=== PATIENT | female | born 1970 | race Caucasian/White ===

== ENCOUNTER 2018-09-28 08:53 | Outpatient (CLI) | payer BC, SELFPAY ==
[2018-09-28 13:10] LABS: Abs Immature Grans 0.02 k/cumm (0.0-0.09); Absolute Basophil Count 0.08 k/cumm (0.0-0.2); Absolute Eosinophil Count 0.16 k/cumm (0.0-0.7); Absolute Lymphocyte Count 2.31 k/cumm (1.2-3.4); Absolute Monocyte Count 0.48 k/cumm (0.11-0.7); Absolute Neutrophil Count 4.61 k/cumm (1.2-6.7); Eosinophils % 2.1; HCT 44.9 % (36.0-46.0); HGB 15.1 g/dL (12.0-15.5); Immature Grans % 0.3; Lymphocytes % 30.2; Mean Corp. HGB Concentration 33.6 g/dL (32.0-36.0); Mean Corpuscular Hemoglobin 29.7 pg (27.0-33.0); Mean Corpuscular Volume 88.2 fL (80-95); Monocytes % 6.3; Neutrophils % 60.1; Platelet Count 359 x1000/uL (130-400); RBC 5.09 m/cumm (4.00-5.20); RBC Distribution Width 13.8 % (11.7-14.6); White Blood Cell Count 7.66 k/cumm (4.4-10.8)
[2018-09-28 14:33] LABS: ALT 28 U/L (12-78); AST 20 U/L (15-37); Albumin 3.9 g/dL (3.4-5.0); Alkaline Phosphatase 121 U/L (46-116); Anion Gap 7.9 mmol/L (3-11); BUN 23 mg/dL (7-18); Bilirubin, Total 0.4 mg/dL (0.2-1.0); CO2 29.1 mmol/L (21.0-32.0); CREATININE 0.94 mg/dL (0.55-1.02); Calcium 8.5 mg/dL (8.5-10.1); Chloride 103 mmol/L (98-107); Glucose 94 mg/dL (70-100); Potassium 4.4 mmol/L (3.5-5.1); Sodium 140 mmol/L (136-145)
[2018-09-28 14:57] LABS: Vitamin D 25 Total 26.4 ng/ml (30-100)
[2018-09-28 15:32] LABS: Bilirubin Negative (Negative); Blood Trace-intact (Negative); Clarity Clear; Glucose Negative (Negative); Ketones Negative (Negative); Leukocyte Esterase Trace (Negative); Nitrite Negative (Negative); Specific Gravity <= 1.005 (1.005-1.025); Urobilinogen 0.2 EU/dL (Up TO 0.2)
[2018-09-28 15:41] LABS: Bacteria Few HPF (Negative); C & S Indicated? Yes; Casts Negative LPF (Negative); Crystals Negative HPF (Negative); Epithelial Cells Negative HPF (Negative); Mucus Negative (Negative); Other Cells Negative (Negative); RBC 0-2 (0-2)
== END 2018-09-28 09:13 ==
PROVIDERS: PCP Family Medicine; Visit Provider Internal Medicine Rheumatology
DX: M32.9 Systemic lupus erythematosus, unspecified (principal); E55.9 Vitamin D deficiency, unspecified
CPT/HCPCS: 36415; 80053; 82306; 87077; 81003; 81015; 85025; 87086; 87186

== ENCOUNTER 2018-12-07 16:00 | Outpatient (REF) | payer BC, SELFPAY | END 2018-12-07 16:20 | LOC: LBN 16:00 | PROVIDERS: PCP Family Medicine; Visit Provider Family Medicine | DX: N76.0 Acute vaginitis (principal) | CPT/HCPCS: 87480; 87510; 87660 ==

== ENCOUNTER 2019-03-15 09:33 | Emergency (ER) | payer BC, SELFPAY ==
[2019-03-15 09:37] VITALS: BP 128/83; PULSE 63; RESP 18; TEMP 36.6; O2SAT 100
--- NOTE | 2019-03-15 09:38 | W.ED.GENAD ---
Discharge Plan Disposition Patient Disposition: HOME Discharge Details Chief Complaint: RashLesion Clinical Impression: Contact dermatitis Primary Care Provider: Terra Sanabria ED Provider: Marty Kincaid Home Meds and New Rx's Prescriptions: No Action methylphenidate HCl 20 mg tablet 20 mg PO TID MDD 3 Qty: 90 RF: 0 ergocalciferol (vitamin D2) [Vitamin D2] 50,000 unit capsule 50,000 unit PO QWEEK Qty: 12 RF: 3 pregabalin [Lyrica] 100 mg capsule See Rx Instructions PO BID Qty: 270 RF: 3 duloxetine 60 mg capsule,delayed release(DR/EC) 60 mg PO DAILY Qty: 270 RF: 3 duloxetine 30 mg capsule,delayed release(DR/EC) 30 mg PO DAILY Qty: 270 RF: 3 bupropion HCl [Wellbutrin XL] 150 mg tablet extended release 24 hr 150 mg PO DAILY Qty: 270 RF: 3 hydroxychloroquine [Plaquenil] 200 MG tablet 200 mg PO BID RF: 0 ibuprofen 200 MG tablet 2 - 4 tab PO BID PRNRF: 0 cevimeline 30 MG capsule 30 mg PO TID PRNRF: 0 Discharge Instructions Instructions: Dermatitis (ED) Additional Instructions: Rash is nondescript and most likely a form of contact dermatitis. Avoid excess itching which may cause secondary infection. Apply thin layer of hydrocortisone cream over the areas of most discomfort. Return should she develop lesions in your mouth severe pain or swelling. Follow-up with the provider should your symptoms persist. Referrals: Terra Sanabria MD, [place] [Primary Care Provider] - 1 week Discharge Data Discharge Date/Time-TO BE ENTERED AT DEPARTURE: 03/15/19 10:06 Medical Decision Making This is a nontoxic-appearing 48-year-old female who presents to the emergency department with a nondescript, nonblanching, maculopapular rash involving the lower back. There is crossing of the midline. Negative Nikolsky sign. No palmar lesions. No oral lesions. Vitals are stable here. No new medications or detergents at home. Symptoms are most likely that of a contact dermatitis nondescript. Discussed supportive care. Discussed use of [id number]-[id number] hydrocortisone cream for itching. Return precautions provided. She is stable for discharge at this time. HPI General Date/Time Provider Initiated Documentation: 03/15/19 09:38. HPI Narrative: This is a 48-year-old female with a significant past medical history for lupus who presented to the emergency department with a burning/itching rash of her lower back. Patient states that symptoms started 24 hours ago after doing excessive yard work. She denies any skin exposure to plants at that time. No other rashes or lesions noted. She denies any oral lesions. No palmar rashes. No fevers. No neck pain or stiffness. No headache. She denies any new medications. No new detergents or clothing. No other family members with rashes. Related Data Home Medications Medication Instructions Recorded Confirmed hydroxychloroquine [Plaquenil] 200 mg PO BID tab-cap 08/24/12 03/15/19 ibuprofen 2 - 4 tab PO BID PRN 08/23/13 03/15/19 cevimeline 30 mg PO TID PRN tab-cap 06/25/16 03/15/19 ergocalciferol (vitamin D2) 50,000 50,000 unit PO QWEEK #12 tab-cap 08/04/18 03/15/19 unit capsule bupropion HCl 150 mg 24 hr tablet, 150 mg PO DAILY #270 tab-cap 11/09/18 03/15/19 extended release duloxetine 30 mg capsule,delayed 30 mg PO DAILY #270 tab 11/09/18 03/15/19 release duloxetine 60 mg capsule,delayed 60 mg PO DAILY #270 tab-cap 11/09/18 03/15/19 release pregabalin 100 mg capsule See Rx Instructions PO BID #270 11/09/18 03/15/19 tab-cap methylphenidate HCl 20 mg tablet 20 mg PO TID #90 tab-cap MDD 3 12/07/18 03/15/19 Previous Rx's Medication Instructions Recorded ergocalciferol (vitamin D2) 50,000 50,000 unit PO QWEEK #12 tab-cap 08/04/18 unit capsule bupropion HCl 150 mg 24 hr tablet, 150 mg PO DAILY #270 tab-cap 11/09/18 extended release duloxetine 30 mg capsule,delayed 30 mg PO DAILY #270 tab 11/09/18 release duloxetine 60 mg capsule,delayed 60 mg PO DAILY #270 tab-cap 11/09/18 release pregabalin 100 mg capsule See Rx Instructions PO BID #270 11/09/18 tab-cap methylphenidate HCl 20 mg tablet 20 mg PO TID #90 tab-cap MDD 3 12/07/18 Allergies Allergy/AdvReac Type Severity Reaction Status Date / Time No Known Drug Allergies Allergy Unverified 12/07/18 14:14 Review of Systems Constitutional Constitutional: Denies anorexia, Denies chills, Denies fatigue, Denies fever(s), Denies headache(s) and Denies lethargy Eyes Eyes: Denies dry eyes, Denies irritation and Denies itchy eyes ENT Ears, Nose, Mouth, and Throat: Denies headache(s), Denies mouth lesions, Denies mouth pain, Denies neck mass and Denies neck pain Cardiovascular Cardiovascular: Denies chest pain, Denies edema and Denies dyspnea Respiratory Respiratory: Denies cough, Denies dyspnea and Denies wheezing Gastrointestinal Gastrointestinal: Denies diarrhea, Denies nausea and Denies vomiting Genitourinary Genitourinary: Denies dysuria Musculoskeletal Musculoskeletal: Denies myalgias, Denies arthralgias, Denies joint swelling, Denies neck pain and Denies numbness Integumentary/Breasts Skin/Breast: Denies bleeding lesions, Denies erythema, Reports rash, Denies skin pain, Denies skin swelling, Denies skin ulcer, Denies sores, Denies striae, Denies unusual bruising and Denies jaundice Neurologic Neurologic: Denies headache(s) and Denies numbness Endocrine Endocrine: Denies fatigue Hematologic/Lymphatic Hematologic/Lymphatic: Denies easy bruising and Denies lymphadenopathy Allergic/Immunologic Allergic/Immunologic: Denies itchy eyes and Denies wheezing [facility] Medical History Annual physical exam (Resolved 05/13/17) Bronchitis (Resolved) Noemí infection of mouth (Resolved 03/20/14) Cervical spondylosis (Resolved 07/10/12) Cognitive disorder (Chronic 09/05/15) Complaints of memory disturbance (Chronic 07/05/14) Contraceptive surveillance (Resolved) 03/18/11 Depressive disorder (Chronic) Fatigue (Resolved 12/24/11) ON METHYLPHENIDATE Fever (Resolved 04/07/17) Limitation due to disability (Chronic 12/06/14) Low back pain (Chronic 10/03/16) Lupus erythematosus (Chronic 08/24/12) thrombosis prophylaxis surgery ([facility] rheumatology) Multiple sclerosis (Chronic 08/24/12) Rib pain on left side (Resolved) 06/25/16 Shoulder pain, right (Resolved 04/18/15) Stenosing tenosynovitis (Resolved 08/14/15) LEFT Vitamin D deficiency (Chronic 12/24/11) Wrist pain, left (Resolved 04/18/15) Social History (Updated 12/09/18 @ 11:33 by Kaz Ramon) Smoking/Tobacco Use Status: Former Tobacco Use Quit Date: 12/31/13 Second Hand Exposure: Yes Alcohol Intake: never Drug use: Occasionally Substance use type: marijuana Caregiver/Support person: No Household members: significant other, children and other Details: 3 Housing: house Communication Needs: Corrective Lenses Do you need help understanding health information?: Never 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 Pets and animals: Yes Pets and animals: cat(s) Sexually active: Yes Do you think of yourself as: straight/heterosexual Current gender identity: female What is your relationship status?: living with partner How often do you talk on the phone with friends or family?: three or more times per week How often do you get together with friends or relatives?: three or more times per week How often do you attend moravian or anglican services?: 1-3 times per year Do you belong to any clubs or organized social groups?: no Panel score (0-1 are the most socially isolated patients): 2 What type of physical activity do you participate in: walking Frequency: 3-4 times per week Germaine/Yarsani: Sabianist Special germaine needs: No Seatbelt use: always Drive intox or ride w/intox vending route driver: No Do you feel safe at home: Yes Do you feel safe in your relationship?: Yes Exam Const General: cooperative, healthy appearing, comfortable and no acute distress Orientation: alert, awake and oriented x3 HENMT Head: normal to inspection General nose exam: external nose normal Face and sinus: normal facial exam Mouth: oral mucosae normal Teeth and gingiva: dentition normal Throat: posterior oropharynx normal Eyes General: appearance normal, both eyes and all related structures Periorbital: periorbital findings normal Conjunctivae: conjunctivae normal Sclera: sclerae normal Pupils: PERRL EOM: EOM intact bilaterally Neck Neck: normal visual inspection and full ROM Chest Chest: normal inspection of the chest Cardio Pulses: normal peripheral pulses GI Inspection: normal to inspection Back/Spine/Pelvis Cervical Spine: normal cervical lordosis Thoracic/Lumbar Spine: thoracic and lumbar spine normal to inspection Skin Rashes: rashes noted (Maculopapular rash which crosses midline of the lower back. Blanching note) Other: Rash is blanching. Diffuse. Negative Nikolsky sign.
== END 2019-03-15 10:06 | disposition home or self-care (01) ==
LOC: ER 10:08
PROVIDERS: Emergency Provider Physician Assistant; PCP Family Medicine
DX: L25.9 Unspecified contact dermatitis, unspecified cause (principal)
CPT/HCPCS: 99282

== ENCOUNTER 2019-08-17 08:52 | Outpatient (CLI) | payer BC, SELFPAY ==
[2019-08-19 04:31] LABS: Vitamin D 25 Total 27.9 ng/ml (30-100)
== END 2019-08-17 09:12 ==
PROVIDERS: PCP Family Medicine; Visit Provider Family Medicine
DX: E55.9 Vitamin D deficiency, unspecified (principal)
CPT/HCPCS: 36415; 82306

== ENCOUNTER 2020-01-20 19:27 | Outpatient (CLI) | payer BC, SELFPAY ==
--- NOTE | 2020-01-20 12:45 | DI.RAD_ITS ---
EXAM: XR LUMBAR SPINE COMPLETE CLINICAL HISTORY: lbp and left leg pain M54.5. TECHNIQUE: 2D digital imaging was performed. COMPARISON: No exams were available for comparison FINDINGS: BONES: No fracture or destructive lesion. Vertebral bodies are unremarkable. Mild to moderate facet h ypertrophy identified at the lower lumbar levels, greater on the right.. DISKS: Intervertebral disc spaces are maintained. The L5-S1 disc space is not optimally profiled. ALIGNMENT: Lumbar spinal alignment is within normal limits. SOFT TISSUE: Normal. IMPRESSION: Mild degenerative changes, mainly of the facet joints of the lower lumbar spine. DATA REPOSITORY: RADIATION DOSE DELIVERED:
== END 2020-01-20 19:47 ==
PROVIDERS: PCP Family Medicine; Visit Provider Family Medicine
DX: M47.816 Spondylosis without myelopathy or radiculopathy, lumbar region (principal); M54.5 Low back pain
CPT/HCPCS: 72110

== ENCOUNTER 2020-02-21 02:12 | Outpatient (CLI) | payer MEDICARE, BC, SELFPAY ==
[2020-02-21 09:14] LABS: Abs Immature Grans 0.03 10^3/uL (0.0-0.06); Absolute Basophil Count 0.08 10^3/uL (0.0-0.2); Absolute Eosinophil Count 0.19 10^3/uL (0.0-0.7); Absolute Lymphocyte Count 1.92 10^3/uL (1.2-3.4); Absolute Monocyte Count 0.54 10^3/uL (0.1-0.8); Absolute Neutrophil Count 4.08 10^3/uL (1.2-6.7); Basophils % 1.2; Eosinophils % 2.8; HCT 41.8 % (36.0-46.0); HGB 13.8 g/dL (11.2-15.7); Immature Grans % 0.4; Lymphocytes % 28.1; MCH 30.1 pg (27.0-33.0); MCV 91.3 fL (80-95); MPV 9.3 fL (8.0-11.0); Monocytes % 7.9; Neutrophils % 59.6; Nucleated RBC 0 %; Platelet Count 393 10^3/uL (130-400); RBC 4.58 10^6/uL (3.93-5.22); RDW-SD 43.6 fL; WBC 6.84 10^3/uL (4.4-10.8)
[2020-02-21 09:35] LABS: Bilirubin Negative (Negative); Blood Trace-intact (Negative); Clarity Sl Cloudy (Clear); Glucose Negative (Negative); Ketones Negative (Negative); Leukocyte Esterase Negative (Negative); Nitrite Positive (Negative); Specific Gravity >= 1.030 (1.005-1.025); Urobilinogen 0.2 EU/dL (Up TO 0.2)
[2020-02-21 09:42] LABS: Bacteria Many HPF (Negative); C & S Indicated? Yes; Casts Negative LPF (Negative); Crystals Negative HPF (Negative); Epithelial Cells Few HPF (Negative); Mucus Moderate (Negative); Other Cells Negative (Negative)
[2020-02-21 10:17] LABS: ALT 23 U/L (14-59); AST 11 U/L (15-37); Albumin 3.7 g/dL (3.4-5.0); Alkaline Phosphatase 83 U/L (46-116); Anion Gap 3.4 mmol/L (3-11); BUN 23 mg/dL (7-18); Bilirubin, Total 0.3 mg/dL (0.2-1.0); CO2 30.6 mmol/L (21.0-32.0); CREATININE 0.87 mg/dL (0.55-1.02); Chloride 107 mmol/L (98-107); Glucose 75 mg/dL (74-106); Potassium 4.5 mmol/L (3.5-5.1); Sodium 141 mmol/L (136-145); Total Protein 6.3 g/dL (6.4-8.2)
[2020-02-21 10:35] LABS: Vitamin D 25 Total 25.7 ng/ml (30-100)
== END 2020-02-21 02:32 ==
PROVIDERS: PCP Family Medicine; Visit Provider Internal Medicine Rheumatology
DX: E55.9 Vitamin D deficiency, unspecified (principal); M32.19 Other organ or system involvement in systemic lupus erythematosus; R82.998 Other abnormal findings in urine
CPT/HCPCS: 36415; 80053; 82306; 87077; 81003; 81015; 85025; 87086; 87186

== ENCOUNTER → 2020-05-15 09:35 | Outpatient (BNVA) | payer MEDICARE, BC, SELFPAY | PROVIDERS: PCP Family Medicine; Referring Provider Family Medicine; Visit Provider Nurse Practitioner Adult Health | DX: G56.03 Carpal tunnel syndrome, bilateral upper limbs (principal); G56.21 Lesion of ulnar nerve, right upper limb | CPT/HCPCS: 95911; 99214 ==

== ENCOUNTER → 2020-06-19 08:35 | Outpatient (BNVA) | payer MEDICARE, SELFPAY | PROVIDERS: PCP Family Medicine; Referring Provider Family Medicine; Visit Provider Student in an Organized Health Care Education/Training Program | DX: G56.03 Carpal tunnel syndrome, bilateral upper limbs (principal) | CPT/HCPCS: 99203; 99214 ==

== ENCOUNTER 2020-07-07 02:03 | Outpatient (CLI) | payer MEDICARE, SELFPAY ==
[2020-07-08 11:31] LABS: COVID-19 RT-PCR UVMMC Result Negative (Negative)
== END 2020-07-07 02:04 | disposition home or self-care (01) ==
LOC: LBO 02:04
PROVIDERS: PCP Family Medicine; Visit Provider Student in an Organized Health Care Education/Training Program
DX: Z20.822 Contact with and (suspected) exposure to COVID-19 (principal); Z01.818 Encounter for other preprocedural examination
CPT/HCPCS: U0003

== ENCOUNTER 2020-07-11 08:52 | Day surgery (SDC) | payer MEDICARE, SELFPAY ==
--- NOTE | 2020-07-11 07:42 | W.PM.DSUDISC ---
Discharge Plan Disposition Patient Disposition: HOME Condition: Good Discharge Details Reason For Visit: Right carpal tunnel syndrome Attending Provider: Antonio Arriaga Primary Care Provider: Terra Sanabria Home Meds and New Rx's Prescriptions: No Action methocarbamol 750 mg tablet 750 mg PO QHS PRN (Reason: spasms) Qty: 30 RF: 0 pregabalin [Lyrica] 100 mg capsule See Rx Instructions PO BID Qty: 270 RF: 3 bupropion HCl [Wellbutrin XL] 150 mg tablet extended release 24 hr 150 mg PO DAILY Qty: 270 RF: 3 duloxetine 60 mg capsule,delayed release(DR/EC) 60 mg PO DAILY Qty: 270 RF: 3 duloxetine 30 mg capsule,delayed release(DR/EC) 30 mg PO DAILY Qty: 270 RF: 3 methylphenidate HCl 20 mg tablet 20 mg PO TID MDD 3 Qty: 90 RF: 0 hydroxychloroquine [Plaquenil] 200 MG tablet 200 mg PO BID RF: 0 ibuprofen 200 MG tablet 2 - 4 tab PO BID PRNRF: 0 cevimeline 30 MG capsule 30 mg PO TID PRNRF: 0 ergocalciferol (vitamin D2) [Vitamin D2] 1,250 mcg (50,000 unit) capsule 50,000 unit PO .twice weekly Qty: 24 RF: 3 Discharge Instructions Stand Alone Forms: Corina Corbin Tunnel Release Referrals: Antonio Arriaga MD [ [facility] STAFF PHYSICIAN] - Activity:: Elevate Remove Dressings/Wound Care:: 72 hours Shower/Bathe:: 72 hours Diet:: As Tolerated Discharge Orders Discharge Orders: Discharge Order (Routine); Ordered 07/11/20 Ordered By: Meeta Yanez DS: Diagnosis Discharge Diagnosis (1) Right carpal tunnel syndrome: Status: Acute
[2020-07-11 09:21] VITALS: BP 109/76; PULSE 70; RESP 12; TEMP 36.1; O2SAT 98
[2020-07-11] MEDS: Lactated Ringers 1,000 ML 80 ML IV (09:48)
[2020-07-11] MEDS: ceFAZolin 2 GM/50 ML BAG IVPB (10:31)
[2020-07-11] MEDS: Sodium Bicarbonate 50 MEQ/50 ML VIAL (10:59)
[2020-07-11 11:30] VITALS: BP 95/64; PULSE 59; RESP 18; TEMP 36; O2SAT 98
--- NOTE | 2020-07-11 15:15 | ROE_ITS ---
Date of service: 07/11/20 Time of Service: 11:15 Operative Note Operative Note DATE OF PROCEDURE: 07/11/20 PRE-OP DIAGNOSIS: Right Carpal Tunnel Syndrome POST-OP DIAGNOSIS: same PROCEDURE: Right Endoscopic Carpal Tunnel Release SURGEON: Antonio Arriaga ANESTHESIA: other (General) ESTIMATED BLOOD LOSS: 0 PATHOLOGY: none sent TOURNIQUET TIME: 5 COMPLICATIONS: None Patient was transported to: same day Patient's condition: stable Indications: I have seen Kristen in clinic for symptoms of carpal tunnel syndrome. The numbness, tingling, and pain limited function. Clinical exam findings with nerve conduction tests confirmed the diagnosis of carpal tunnel syndrome. Nonoperative measures such as bracing, time, activity modifications had been tr ied but disability and pain persisted. I discussed carpal tunnel release with the patient. I reviewed the risks of the procedure to include, but not limited to, bleeding, infection, pain, stiffness, incomplete release, damage to nerves or vessels, persistent numbness, recurrence. Despite these risks, the patient elected to proceed. Findings: There was tightened carpal tunnel. This was dilated and released successfully with the endoscopic with increased space within the tunnel. The antebrachial fascia was released proximally freeing the median nerve at the wrist. Procedure Description: Kristen was greeted in the preoperative holding area where the correct side was identified and marked. The consent was reviewed with the patient and signed. The history and physical was updated. All questions were answered. Kristen was taken back to the operating room. The patient was placed into the supine position on the operating room table with the right arm on an arm board. A nonsterile tourniquet was placed high onto the arm. All bony prominences were well padded. Prophylactic antibiotics in the form of Cefazolin were administered. The right arm was then prepped with Chloraprep and draped in a standard fashion with stockinette and extremity drape. A timeout to confirm correct identity, side and site, procedure, allergies, anesthesia, and medical concerns was performed. The surgical site was marked in the volar wrist creases in line with the radial border of the fourth ray. This area was anesthetized with approximately 6cc of 1% Lidocaine. The limb was then exsanguinated with an Esmarch. The skin was incised with a 15 blade, approximately 1cm. The skin only was cut and the d eeper tissue was dissected bluntly with a tenotomy scissor, avoiding passing nerve and venous structures. The fascia was penetrated and opened bluntly. A two-prong skin hook was placed under this proximal fascial edge. A series of hamate finders were used to identify and dilate the carpal tunnel. Synovial elevator was used to free synovial attachments to the underside of the transverse carpal ligament. My thumb was kept in the palm to hong the distal extent of the carpal tunnel and correctly position the hand. The Microaire endoscope was inserted without difficulty and without resistance. Excellent visualization showed horizontally running fibers of the transverse carpal ligament (TCL). The distal extent of the TCL was visualized and the end of the scope palpated with the thumb. The blade was elevated and withdrawn from distal to proximal. The TCL was split into two flaps. The endoscope was reinserted to confirm complete release and any remnant ligament was incised. The scope was withdrawn and the proximal aspect of the carpal tunnel was grossly inspected and appeared release with the median nerve visible. The antebrachial fascia at the level of the wrist was then freed from the overlying skin and then the underlying median nerve with blunt dissection. This was transected longitudinally for about 3cm proximal to the wrist incision. The wound was then irrigated with easy flow of irrigant distally and proximally. The incision was closed with a single 4-0 Nylon suture. The wound was dressed with Xeroform, Gauze, Kerlix and Roldan. The tourniquet was deflated with the initial dressing and held with some pressure. Blood flow returned easily to all digits with capillary refill less than 2 seconds. The patient tolerated the procedure well and was returned to the Same Day Surgery area in a stable condition suffering no known complication.
== END 2020-07-11 11:45 | disposition home or self-care (01) ==
LOC: SUR 08:53
PROVIDERS: PCP Family Medicine; Visit Provider Student in an Organized Health Care Education/Training Program
PROC: 01N54ZZ Release Median Nerve, Percutaneous Endoscopic Approach (ICD-10-PCS; CPT 29848; principal; 2020-07-11 10:15)
DX: G56.01 Carpal tunnel syndrome, right upper limb (principal)
CPT/HCPCS: 29848; J0690; J1100; J1885; J2001; J2405; J2704

== ENCOUNTER → 2020-07-21 07:59 | Outpatient (BNVA) | payer MEDICARE, SELFPAY | PROVIDERS: PCP Family Medicine; Referring Provider Family Medicine; Visit Provider Physician Assistant | DX: Z47.89 Encounter for other orthopedic aftercare (principal); G56.01 Carpal tunnel syndrome, right upper limb ==

== ENCOUNTER → 2020-11-14 11:23 | Outpatient (BNVA) | payer MEDICARE, SELFPAY | PROVIDERS: PCP Family Medicine; Referring Provider Family Medicine; Visit Provider Psychiatry & Neurology Neurology | DX: G35 Multiple sclerosis (principal); G62.9 Polyneuropathy, unspecified; F32.9 Major depressive disorder, single episode, unspecified; R25.1 Tremor, unspecified; R53.82 Chronic fatigue, unspecified; R41.3 Other amnesia | CPT/HCPCS: 99215 ==

== ENCOUNTER 2020-12-26 11:11 | Outpatient (REF) | payer MEDICARE, SELFPAY ==
--- NOTE | 2020-12-26 09:15 | PAPFT_PTH ---
PATIENT: Kristen Tavares LOC: [facility] U#:[id number] AGE/SX: 50/F ROOM: RE12/26/[address]: Terra Sanabria MD, [place] : 1970 BED: DIS: 12/26/2020 SPEC #: [id number] RECD: 12/26/20 12:55 STATUS: JVPedrito REQ #: [id number] [place] DELIA: 12/26/20 09:[address]: Terra Sanabria DEPT: [facility] Cytology RECD BY: Lelo Jeffrey Tissues: 1 - CX/ENDOCX FOR PAP SMEARS Procedures: PAP THIN PREP/UVM Screening HPV DNA PROBE Comments: [id number]
== END 2020-12-26 11:12 | disposition home or self-care (01) ==
LOC: LBN 11:11
PROVIDERS: PCP Family Medicine; Visit Provider Family Medicine
DX: Z12.4 Encounter for screening for malignant neoplasm of cervix (principal); Z11.51 Encounter for screening for human papillomavirus (HPV); Z01.419 Encounter for gynecological examination (general) (routine) without abnormal findings
CPT/HCPCS: 88142; 87624

== ENCOUNTER 2021-01-09 02:53 | Outpatient (CLI) | payer MEDICARE, SELFPAY ==
[2021-01-09 12:21] LABS: Abs Immature Grans 0.03 10^3/uL (0.0-0.06); Absolute Basophil Count 0.09 10^3/uL (0.0-0.2); Absolute Eosinophil Count 0.18 10^3/uL (0.0-0.7); Absolute Monocyte Count 0.55 10^3/uL (0.1-0.8); Basophils % 1.2; Eosinophils % 2.4; HCT 43.8 % (36.0-46.0); HGB 14.4 g/dL (11.2-15.7); Immature Grans % 0.4; Lymphocytes % 27.2; MCH 29.9 pg (27.0-33.0); MCHC 32.9 % (32.0-36.0); MCV 90.9 fL (80-95); MPV 10.4 fL (8.0-11.0); Monocytes % 7.5; Neutrophils % 61.3; Nucleated RBC 0 %; Platelet Count 390 10^3/uL (130-400); RBC 4.82 10^6/uL (3.93-5.22); RDW 13.1 % (11.7-14.6); RDW-SD 43.8 fL; WBC 7.35 10^3/uL (4.4-10.8)
[2021-01-09 12:42] LABS: ALT 21 U/L (14-59); AST 17 U/L (15-37); Albumin 3.8 g/dL (3.4-5.0); Alkaline Phosphatase 93 U/L (46-116); Anion Gap 8.6 mmol/L (3-11); BUN 20 mg/dL (7-18); Bilirubin, Total 0.2 mg/dL (0.2-1.0); CO2 26.4 mmol/L (21.0-32.0); CREATININE 0.8 mg/dL (0.55-1.02); Calcium 8.9 mg/dL (8.5-10.1); Chloride 109 mmol/L (98-107); Glucose 104 mg/dL (74-106); Potassium 4.2 mmol/L (3.5-5.1); Sodium 144 mmol/L (136-145); TSH (W/Ref FT4) 4.95 uIU/mL (0.36-3.74); Total Protein 6.5 g/dL (6.4-8.2)
[2021-01-09 13:01] LABS: FREE T4 0.76 ng/dL (0.76-1.46)
[2021-01-11 01:24] LABS: Vitamin D 25 Total 68.3 ng/mL (30-100)
== END 2021-01-09 02:54 | disposition home or self-care (01) ==
LOC: LOS 02:53
PROVIDERS: PCP Family Medicine; Visit Provider Family Medicine
DX: R53.83 Other fatigue (principal); E55.9 Vitamin D deficiency, unspecified; G35 Multiple sclerosis; L93.0 Discoid lupus erythematosus; Z00.00 Encounter for general adult medical examination without abnormal findings
CPT/HCPCS: 36415; 80053; 82306; 85027; 84439; 84443; 85025

== ENCOUNTER 2021-01-11 15:57 | Outpatient (REF) | payer MEDICARE, SELFPAY ==
[2021-01-11 17:15] LABS: Bilirubin Negative (Negative); Blood Negative (Negative); Clarity Clear (Clear); Glucose Negative (Negative); Ketones Negative (Negative); Leukocyte Esterase Negative (Negative); Nitrite Negative (Negative); Specific Gravity 1.015 (1.005-1.025); Urobilinogen 0.2 EU/dL (Up TO 0.2)
== END 2021-01-11 15:58 | disposition home or self-care (01) ==
LOC: LBN 15:57
PROVIDERS: PCP Family Medicine; Visit Provider Internal Medicine Rheumatology
DX: E55.9 Vitamin D deficiency, unspecified (principal); M32.19 Other organ or system involvement in systemic lupus erythematosus
CPT/HCPCS: 81003

== ENCOUNTER → 2021-06-11 10:34 | Outpatient (BNVA) | payer OTHER, SELFPAY | PROVIDERS: PCP Family Medicine; Referring Provider Family Medicine; Visit Provider Psychiatry & Neurology Neurology | DX: G35 Multiple sclerosis (principal); G62.9 Polyneuropathy, unspecified; F32.9 Major depressive disorder, single episode, unspecified; R25.1 Tremor, unspecified; R53.82 Chronic fatigue, unspecified; R41.3 Other amnesia | CPT/HCPCS: 99213 ==

== ENCOUNTER 2021-10-23 03:19 | Outpatient (CLI) | payer OTHER, SELFPAY ==
[2021-10-23 09:02] LABS: Hemoglobin A1C 5.4 % (<5.7)
[2021-10-23 09:46] LABS: ALT 23 U/L (14-59); AST 18 U/L (15-37); Alkaline Phosphatase 89 U/L (46-116); Anion Gap 6.8 mmol/L (3-11); BUN 29 mg/dL (7-18); Bilirubin, Total 0.2 mg/dL (0.2-1.0); CO2 29.2 mmol/L (21.0-32.0); CREATININE 0.8 mg/dL (0.55-1.02); Calcium 8.6 mg/dL (8.5-10.1); Chloride 108 mmol/L (98-107); Glucose 95 mg/dL (74-106); Potassium 4.5 mmol/L (3.5-5.1); Sodium 144 mmol/L (136-145); TSH (W/Ref FT4) 2.48 uIU/mL (0.36-3.74); Total Protein 6.7 g/dL (6.4-8.2)
[2021-10-23 13:43] LABS: Lab Add On Test DONE
[2021-10-23 14:34] LABS: Vitamin B12 302 pg/mL (193-986)
== END 2021-10-23 03:20 | disposition home or self-care (01) ==
LOC: LBO 03:19
PROVIDERS: Psychiatry & Neurology Neurology; PCP Family Medicine; Visit Provider Family Medicine
DX: E07.9 Disorder of thyroid, unspecified (principal); E11.9 Type 2 diabetes mellitus without complications; G35 Multiple sclerosis; Z79.899 Other long term (current) drug therapy
CPT/HCPCS: 36415; 80053; 82607; 83036; 84443

== ENCOUNTER → 2021-12-19 13:43 | Outpatient (BNVA) | payer OTHER, SELFPAY | PROVIDERS: PCP Family Medicine; Referring Provider Family Medicine; Visit Provider Psychiatry & Neurology Neurology | DX: G35 Multiple sclerosis (principal); R53.82 Chronic fatigue, unspecified; F32.9 Major depressive disorder, single episode, unspecified; R41.3 Other amnesia; R43.8 Other disturbances of smell and taste; U09.9 Post COVID-19 condition, unspecified | CPT/HCPCS: 99214 ==

== ENCOUNTER 2022-05-31 00:34 | Outpatient (CLI) | payer OTHER, SELFPAY ==
--- NOTE | 2022-05-31 12:14 | DI.MAMMO_ITS ---
Exam(s) MAMMO SCREENING EXAM: MAMMO SCREENING CLINICAL HISTORY: screening,z12.39 TECHNIQUE: Mammograms were interpreted according to the usual protocol including computer analysis w Paktor CAD system, tomosynthesis and C-view imaging. COMPARISON: 2018 FINDINGS: The breasts are composed of mainly fatty density , Breast Density category A. No suspicious masses or suspicious microcalcifications are seen. No skin thickening or abnormal axillary lymph nodes are seen. There has been no significant change from prior exams. IMPRESSION: BI-RADS Category 1, Negative mammogram Yearly screening mammography is recommended. Breast Density - Category A, fatty density. A negative radiographic report should not delay biopsy if a dominant or clinically suspicious mass is present. Up to ten percent of cancers are not identified on mammography. A negative report may reinforce clinical impression. Adenosis and dense breasts may obscure an underlying neoplasm. False positive reports average 6 to 10%. Patient will receive a letter notifying them of these results.
== END 2022-05-31 00:54 ==
LOC: DI 00:34
PROVIDERS: PCP Family Medicine; Visit Provider Family Medicine
DX: Z12.31 Encounter for screening mammogram for malignant neoplasm of breast (principal)
CPT/HCPCS: 77063; 77067

== ENCOUNTER 2022-06-24 00:36 | Outpatient (CLI) | payer OTHER, SELFPAY ==
--- NOTE | 2022-06-24 06:45 | DI.NM_ITS ---
APPROVED REPORT Exam: Pharmacologic Patient Location: Out-Patient Room/Bed: Stress Nurse: Jasmyn Hudson RN Ordering Provider:WILFREDO CASTANEDA, Contact Number: [phone] BMI: 27.75 Baseline Rhythm: Sinus Rhythm Indications: Chest pain, heart murmur Medical History Medical History: Heart murmur, multiple sclerosis, lupus, DEONTE, memory disturbances Cardiac Medications: Levothyroxine Allergies: NKA Cardiac Risk Factors: Smoker(former), family hx Previous Cardiac Procedures: None Pretest Chest Pain Characteristics: None Exercise History: Sedentary Physical Disabilities: Fatigue from lupus and MS Lung Sounds: Clear to auscultation Heart Sounds: Murmur Stress Test Details Test: Pharmacologic stress was paired with low level exercise. Reason for pharmacologic stress test: physical limitation. Nuclear Acquisition: Rest Tc-99m/Stress Tc-99m 1 day Rest Isotope: Tc-99m Sestamibi. Dose: 10.2 Date: 06/24/2022 Injection Time: 0915 Stress Isotope: Tc-99m Sestamibi. Dose: 32.5 Date: 06/24/2022 Injection Time: 1035 HR Resting HR Supine: 67 bpm Max Heart Rate (APMHR): 170.336569 bpm Resting HR Standin bpm Target HR (85% APMHR): 144.575268 bpm Max HR Achieved: 112 bpm % of APMHR: 65.88 Recovery HR: 87 bpm HR response to stress: Normal HR response to stress BP Resting BP Supine: 112/62 mmHg Resting BP Standin/72 mmHg Max BP: 130/50 mmHg Recovery BP: 112/82 mmHg BP response to stress: Normal blood pressure response to stress. ECG Resting ECG: Sinus Rhythm Ectopy: None Comment: Inverted T waves lead aVL Stress ECG: Sinus Tachycardia ST Change: No significant ST segment changes noted Arrhythmia: None Comment: Inverted T waves lead aVL and V2 Recovery ECG: Sinus Rhythm Recovery ST Change: No significant ST segment changes noted Recovery Arrhythmia: None Comment: Inverted T waves lead aVL and V2 Clinical Stress Symptoms: General Fatigue, Dyspnea Exercise capacity: 2.45 METs Angina Score: None Rate Pressure Product: 19632 Stress ECG Conclusion 1. The resting electrocardiogram showed left anterior fascicular block and poor R wave progression 2. Patient underwent testing using combination of low-level exercise and pharmacologic stress with re gadenoson 3. Peak heart rate achieved was 66% of predicted heart rate for age 4. The electrocardiographic portion of the test was nondiagnostic due to inadequate heart rate 5. See MPI report Stress Test Summary STAGE HR BP SpO2 Symptoms NOTES Supine 67 112/62 Standing 77 114/72 98% 1 min post Lexiscan injection 109 130/50 98% Mild dyspnea 3 min post Lexiscan injection 94 120/82 98% Dyspnea improving 6 min post Lexiscan injection 87 112/82 98% Dyspnea resolved Pharmacologic stress was paired with low level exercise due to physical limitation. Patient ambulated on treadmill at 1.9 mph and 0% grade; tolerated testing well. MPI Conclusion Normal myocardial perfusion, no ischemia or prior infarction EF 56%, normal wall motion Radiologist Interpretation Radiologist agrees with Fireworks Assembly Supervisor's Interpretation. Radiologist Interpretation by: Isamar Wilhelm MD Interpretation Date/Time: 06/24/2022 16:41:04
--- NOTE | 2022-06-24 08:13 | DI.US_ITS ---
APPROVED REPORT EXAM: Comprehensive 2D, Doppler, and color-flow Echocardiogram Patient Location: Out-Patient Hydrogen Treater: Samantha Mandel RDCS (AE) Indications: New heart murmur, Chest pain Other Information Study Quality: Adequate Conclusion Normal left ventricular wall thickness and chamber size. Estimated ejection fraction is 60%. Wall m otion is normal Normal right ventricular size and systolic function Both atria are normal in size There is no structural or hemodynamically significant valvular disease Estimated right ventricular systolic pressure is normal at 20 mmHg Wall motion Left Ventricle The left ventricle is normal size. The left ventricular systolic function is normal. The left ventric ular ejection fraction is within the normal range. There is normal left ventricular wall thickness. T here is normal LV segmental wall motion. There is no ventricular septal defect visualized. LVEF is 60 %. Right Ventricle The right ventricle is normal size. The right ventricular systolic function is normal. The RVSP is 19 .7_ mmHg. Atria The left atrium size is normal. The right atrium size is normal. The interatrial septum is intact wit h no evidence for an atrial septal defect. Aortic Valve The aortic valve is normal in structure. There is no aortic valvular stenosis. No aortic regurgitatio n is present. Mitral Valve The mitral valve is normal in structure. No evidence of mitral valve stenosis. Trace mitral regurgita tion. Tricuspid Valve The tricuspid valve is normal in structure. There is no tricuspid valve stenosis. Trace tricuspid reg urgitation. Pulmonic Valve The pulmonary valve is normal in structure. There is no pulmonic valvular stenosis. Trace pulmonic re gurgitation. Great Vessels The aortic root is normal in size. The ascending aorta is normal in size. Aortic arch is normal in ca liber. IVC is normal in size and collapses >50% with inspiration. Pericardium There is no pericardial effusion. 2D Dimensions IVSD d PLAX 0.65 cm F: 0.6-1.0 LV Vol A2C d MOD 102.5 mL LVPW d PLAX 0.70 cm F: 0.6 - 1.0 LV Vol A4C d MOD 99.4 mL LVID d PLAX 4.69 cm F: 3.8 - 5.2 LA vol/ BSA A2C s A-L 22.6 mL/m2 LVDs 3.05 cm F: 2.2 - 3.5 LA vol/ BSA A4C s A-L 16.9 mL/m2 Ao Root d 3.02 cm F: 2.7 - 3.3 LA Vol/ BSA Biplane s A-L 20.3 mL/m2 RA Area A4C 9.56 cm2 LA Area A4C s MOD 13.50 cm2 RA Vol/ BSA A4C s A-L 9.6 mL/m2 LA Area A2C s MOD 16.21 cm2 Ao Asc Diam d 2.87 cm F: 2.3 - 3.1 LV EF A4C MOD 59.0 % LV EF Teichholz 64.2 % LV EF A2C MOD 60.1 % LVEF (Jacob's) 60.95 % F: 54 - 74 LV EF Biplane MOD 61.0 % LV Volume 79.85 mL F: 46 - 106 SV 63.65 mL LV Volume Index 42.24 mL/m2 F: 29 - 61 SV Index 33.68 mL/m2 LV Vol Biplane MOD 104.4 mL FS 34.90 % M-Mode TAPSE 2.53 cm (M/F) >1.7 LV Diastology MV E' medial 0.135 (>0.07 m/s) E/A Ratio 1.2 LV E/e MED 5.95 (<14) MV E Vmax 0.81 (0.4-1.3 m/s) MV E' lateral 0.194 (>0.1 m/s) MV A Vmax 0.70 (0.4-1.3 m/s) LV E/e LAT 4.15 (<14) MV E/A Ratio 1.10 MV E/E' medial 5.98 MV E/E' lateral 4.17 Aortic Valve LVOT Area 2.96 cm2 AoV Area Vmax 2.69 cm2 LVOT Vmax 1.24 m/s AoV Area/ BSA (Vmax) 1.43 cm2/m2 LVOT Mean Shivam. 0.79 m/s LISA Mean Shivam. 2.58 cm2 LVOT Peak Grad 6.1 mmHg LISA Mean Shivam. Index 1.37 cm2/m2 LVOT Mean Grad 3.0 mmHg LVOT VTI 0.249 m LVOT Diam s 1.90 cm AoV Vmax 1.36 m/s Velocity Ratio 0.91 AoV Mean Shivam. 0.91 m/s AoV Peak Grad 7.4 mmHg LVOT SV 73.67 mL AoV Mean Grad 3.8 mmHg AoV VTI 0.233 m AoV Area VTI 3.17 cm2 AoV Area/ BSA (VTI) 1.68 cm/m2 Mitral Valve MV DT 171 (160-240 msec) MV PHT 50 msec MV Area PHT 4.43 cm2 Pulmonary Valve PV Vmax 0.88 (0.5-1.5 m/s) RVOT Peak Gr. 1.22 mmHg PV Peak Grad 3.1 mmHg RVOT Mean Gr. 0.65 mmHg PV Mean Grad 1.7 mmHg RVOT VTI 0.117 m PV VTI 0.144 m RVOT Vmax 0.55 m/s Tricuspid Valve TR Peak Grad 16.6 mmHg TR Vmax 2.04 m/s RA Pressure 3.00 mmHg RVSP (TR) 19.7 mmHg
[2022-06-24] MEDS: Regadenoson 0.4 MG/5 ML SYR IVP (10:45)
== END 2022-06-24 00:56 ==
LOC: DI 00:36
PROVIDERS: PCP Family Medicine; Visit Provider Family Medicine
DX: R01.1 Cardiac murmur, unspecified (principal); Z12.11 Encounter for screening for malignant neoplasm of colon; R07.9 Chest pain, unspecified
CPT/HCPCS: 78452; 93016; 93018; 93306; 93017; J2785

== ENCOUNTER → 2022-07-02 12:43 | Outpatient (BNVA) | payer OTHER, SELFPAY | PROVIDERS: PCP Family Medicine; Referring Provider Family Medicine; Visit Provider Psychiatry & Neurology Neurology | DX: G35 Multiple sclerosis (principal); R53.82 Chronic fatigue, unspecified; G62.9 Polyneuropathy, unspecified; F32.9 Major depressive disorder, single episode, unspecified; R25.1 Tremor, unspecified; R41.3 Other amnesia; L93.0 Discoid lupus erythematosus | CPT/HCPCS: 99214 ==

== ENCOUNTER 2022-09-02 09:31 | Outpatient (CLI) | payer OTHER, SELFPAY ==
[2022-09-02 12:21] LABS: HCT 43.9 % (36.0-46.0); HGB 14.9 g/dL (11.2-15.7); MCH 29.6 pg (27.0-33.0); MCHC 33.9 % (32.0-36.0); MCV 87 fL (80-95); MPV 9.9 fL (8.0-11.0); Platelet Count 411 10^3/uL (130-400); RBC 5.04 10^6/uL (3.93-5.22); RDW 13.4 % (11.7-14.6); RDW-SD 42.6 fL
[2022-09-02 12:42] LABS: ALT 29 U/L (14-59); AST 20 U/L (15-37); Albumin 4.2 g/dL (3.4-5.0); Alkaline Phosphatase 116 U/L (46-116); Anion Gap 8.7 mmol/L (3-11); BUN 18 mg/dL (7-18); Bilirubin, Total 0.3 mg/dL (0.2-1.0); CO2 29.3 mmol/L (21.0-32.0); CREATININE 0.9 mg/dL (0.55-1.02); Calcium 9.1 mg/dL (8.5-10.1); Chloride 106 mmol/L (98-107); Glucose 105 mg/dL (74-106); Potassium 4.4 mmol/L (3.5-5.1); Sodium 144 mmol/L (136-145); Total Protein 7.4 g/dL (6.4-8.2)
== END 2022-09-02 09:32 | disposition home or self-care (01) ==
LOC: LOS 09:32
PROVIDERS: PCP Family Medicine; Referring Provider Family Medicine; Visit Provider Family Medicine
DX: E03.9 Hypothyroidism, unspecified (principal); R53.83 Other fatigue
CPT/HCPCS: 36415; 80053; 85027; 84443

== ENCOUNTER → 2022-09-30 09:52 | Outpatient (BNVA) | payer OTHER, SELFPAY | PROVIDERS: PCP Family Medicine; Visit Provider Psychiatry & Neurology Neurology | DX: G35 Multiple sclerosis (principal); R53.82 Chronic fatigue, unspecified; F32.9 Major depressive disorder, single episode, unspecified; G62.9 Polyneuropathy, unspecified; R25.1 Tremor, unspecified; L93.0 Discoid lupus erythematosus | CPT/HCPCS: 99214 ==

== ENCOUNTER → 2023-02-20 03:08 | Outpatient (CLI) | payer OTHER, SELFPAY ==
--- NOTE | 2023-02-20 06:45 | DI.DEXA_ITS ---
Exam(s) XR DEXA BONE DENSITY W/WO AMANDA EXAM: XR DEXA BONE DENSITY W/WO AMANDA CLINICAL HISTORY: SCREENING FOR OSTEOPOROSIS IN POSTMENOPAUSAL WOMAN,Z78.0 TECHNIQUE: COMPARISON: No exams were available for comparison FINDINGS: Lateral Spine Image: Unremarkable. No compression deformities identified. Left hip: Total T-Score: -0.4 Total Z-Score: 0.2 T- and Z-scores: Within normal limits. There is osteopenia in the femoral neck with a T-score of -1.2 . Lumbar Spine: Total T-Score: 0.4 Total Z-Score: 1.3 T- and Z-scores: Within normal limits. IMPRESSION: No evidence of osteoporosis.
--- NOTE | 2023-02-20 07:48 | DI.CTLCSR_ITS ---
Exam(s) CT CHEST LUNG CANCER SCREEN EXAM: CT CHEST LUNG CANCER SCREEN CLINICAL HISTORY: Screening for lung cancer,FORMER SMOKER, Z87.891 TECHNIQUE: Imaging Protocol: Axial computed tomography images with coronal and sagittal reformatted images were created and reviewed COMPARISON: No exams were available for comparison FINDINGS: Tracheobronchial tree: Patent where visualized. Pulmonary parenchyma: No consolidation or dominant measurable mass. No architectural distortion. Ther e is a linear atelectasis in the left lung base. Lung Nodules: There is a 5 mm subpleural nodule in the medial aspect of the right lower lobe. Mediastinum and Sofiya: No dominant adenopathy or fluid collection. The esophagus is unremarkable. Thyroid gland: Unremarkable. Lymph nodes: Unremarkable. Pleura: No effusion or pneumothorax. Heart: The heart is not dilated. Mild three-vessel coronary artery calcification. No pericardial eff usion. Aorta: Thoracic aorta non-dilated. Upper abdomen: Unremarkable. Soft Tissues: Unremarkable. Bones: Within normal limits. IMPRESSION: 5 mm subpleural right lower lobe pulmonary nodule. Lung RADS Cat 3 - Probably Benign: Probably benign finding(s) - short term follow-up suggested; inclu de nodules with a low likelihood of becoming a clinically active cancer. Lung-RADS 1.0 CATEGORIES: Category 0 - Prior chest CT exam(s) being located for comparison. Category 1 - Annual screening in 12 months. No nodules or definitely benign nodules. Category 2 - Annual screening in 12 months. Benign appearance. Nodules with low likelihood of becomin g active cancer. Category 3 - 6-month follow-up. Probably benign. Short-term follow-up suggested. Nodules with low lik elihood of becoming active cancer. Category 4A - 3-month follow-up and CT/PET if >8 mm in size. Suspicious finding. Findings which requi re additional testing. Category 4B - Findings which require additional testing and tissue sampling. Suspicious finding. Category 4X - Category 3 or 4 nodules with additional features or imaging findings that increases the suspicion of malignancy. Modifier S- Potentially clinically significant finding. (Non lung cancer) RADIATION DOSE DELIVERED: 75.55mGy.cm Total DLP 75.55mGy.cmTotal DLP DATA REPOSITORY: All CT scans at this facility are submitted to the National Radiology Data Registry (NRDR) Dose Index Registry (DIR) with the [employer] (A[employer]). RADIATION OPTIMIZATION: All CT scans at this facility use at least one of these dose optimization te chniques: automated exposure control; mA and/or kV adjustment per patient size (includes targeted exa ms where dose is matched to clinical indication); or iterative reconstruction.
== END ==
PROVIDERS: PCP Family Medicine; Visit Provider Family Medicine
DX: Z78.0 Asymptomatic menopausal state (principal); Z87.891 Personal history of nicotine dependence; Z12.2 Encounter for screening for malignant neoplasm of respiratory organs; Z13.820 Encounter for screening for osteoporosis; R91.8 Other nonspecific abnormal finding of lung field
CPT/HCPCS: 71271; 77080

== ENCOUNTER → 2023-02-24 10:04 | Outpatient (BNVA) | payer OTHER, SELFPAY | PROVIDERS: PCP Family Medicine; Referring Provider Family Medicine; Visit Provider Psychiatry & Neurology Neurology | DX: G35 Multiple sclerosis (principal); R53.82 Chronic fatigue, unspecified; F32.9 Major depressive disorder, single episode, unspecified; R25.1 Tremor, unspecified; R41.3 Other amnesia | CPT/HCPCS: 99214 ==

== ENCOUNTER → 2023-05-23 00:52 | Outpatient (CLI) | payer OTHER, SELFPAY ==
--- NOTE | 2023-05-23 06:30 | DI.CT_ITS ---
Exam(s) CT CHEST WO EXAM: CT CHEST WO CLINICAL HISTORY: abnl CT Scan - lung nodule,R91.1 TECHNIQUE: Imaging Protocol: Axial computed tomography images with coronal and sagittal reformatted images were created and reviewed COMPARISON: CT CT CHEST LUNG CANCER SCREEN from 02/20/2023 FINDINGS: Tracheobronchial tree: Patent where visualized. Pulmonary parenchyma: No consolidation or dominant measurable mass. No architectural distortion. Lung Nodules: There is a stable 5 mm nodule in the periphery of the right lower lobe. (Series 3, jung ge [id number]). No new pulmonary nodules are present. Mediastinum and Sofiya: No dominant adenopathy or fluid collection. The esophagus is unremarkable. Thyroid gland: Unremarkable. Lymph nodes: Unremarkable. Pleura: No effusion or pneumothorax. Heart: The heart is not dilated. Coronary artery calcification is present. No pericardial effusion. Aorta: Thoracic aorta non-dilated. Upper abdomen: Unremarkable. Soft Tissues: Unremarkable. Bones: Within normal limits for the patient's age. IMPRESSION: Stable 5 mm right lower lobe pulmonary nodule. No new pulmonary nodules. Lung RADS Cat 2 - Benign Appearance / Behavior: Nodules with a very low likelihood of becoming a clin ically active cancer due to size or lack of growth Lung-RADS 1.0 CATEGORIES: Category 0 - Prior chest CT exam(s) being located for comparison. Category 1 - Annual screening in 12 months. No nodules or definitely benign nodules. Category 2 - Annual screening in 12 months. Benign appearance. Nodules with low likelihood of becomin g active cancer. Category 3 - 6-month follow-up. Probably benign. Short-term follow-up suggested. Nodules with low lik elihood of becoming active cancer. Category 4A - 3-month follow-up and CT/PET if >8 mm in size. Suspicious finding. Findings which requi re additional testing. Category 4B - Findings which require additional testing and tissue sampling. Suspicious finding. Category 4X - Category 3 or 4 nodules with additional features or imaging findings that increases the suspicion of malignancy. Modifier S- Potentially clinically significant finding. (Non lung cancer) RADIATION DOSE DELIVERED: Total DLP Total DLP DATA REPOSITORY: All CT scans at this facility are submitted to the National Radiology Data Registry (NRDR) Dose Index Registry (DIR) with the [employer] (ACR). RADIATION OPTIMIZATION: All CT scans at this facility use at least one of these dose optimization te chniques: automated exposure control; mA and/or kV adjustment per patient size (includes targeted exa ms where dose is matched to clinical indication); or iterative reconstruction.
== END ==
PROVIDERS: PCP Family Medicine; Visit Provider Family Medicine
DX: R91.1 Solitary pulmonary nodule (principal)
CPT/HCPCS: 71250

== ENCOUNTER 2023-07-03 09:08 | Day surgery (SDC) | payer MEDICARE, SELFPAY ==
--- NOTE | 2023-07-02 17:27 | W.PM.DSUDISC ---
Date of service: 07/03/23 Time of Service: 12:32 Discharge Plan Disposition Patient Disposition: Home Condition: Good Discharge Details Reason For Visit: screening colonocsopy Attending Provider: Evan Mariano Primary Care Provider: Terra Sanabria Home Meds and New Rx's Prescriptions: Continued duloxetine 60 mg capsule,delayed release(DR/EC) 60 mg PO DAILY Qty: 270 3RF Rx Instructions: total daily dose 90mg duloxetine 30 mg capsule,delayed release(DR/EC) 30 mg PO DAILY Qty: 270 3RF Rx Instructions: total daily dose 90mg modafinil 200 mg tablet 200 mg PO DAILY Qty: 90 3RF ibuprofen 200 MG tablet 2 - 4 tab PO BID PRN cevimeline 30 MG capsule 30 mg PO TID PRN Patient Comments: 10/03/16- Takes PRN. aj hydroxychloroquine [Plaquenil] 200 mg tablet 200 mg PO DAILY Patient Comments: Friday,Friday just takes one tab per rheumatology. triamcinolone acetonide 0.1 % cream 1 applic topical BID PRN (Reason: rash) Qty: 80 0RF Rx Instructions: apply to foot ergocalciferol (vitamin D2) [Vitamin D2] 1,250 mcg (50,000 unit) capsule 50,000 unit PO .twice weekly Qty: 24 3RF pregabalin 200 mg capsule 200 mg PO BID Qty: 180 3RF bupropion HCl 300 mg tablet extended release 24 hr 300 mg PO DAILY Qty: 90 3RF levothyroxine 50 mcg tablet 50 mcg PO DAILY Qty: 90 6RF Discontinued bisacodyl [Dulcolax (bisacodyl)] 5 mg tablet,delayed release (DR/EC) 5 mg PO ONCE Qty: 4 0RF Rx Instructions: Take per colonoscopy instructions provided by ordering providers office polyethylene glycol 3350 17 gram/dose powder 17 g PO ONCE Qty: 238 0RF Rx Instructions: Take per colonoscopy instructions provided by ordering providers office Discharge Instructions Instructions: Diverticulosis (GEN), Colorectal Polyps (GEN), Diverticulosis Diet (GEN) Additional Instructions: Kristen, we were able to complete your colonoscopy today without any difficulty. I did find 2 polyps, and I removed both of these completely. They are both relatively small. There were no features to the naked eye that appear worrisome. I will send them off to be tested by the pathologist, and when I have the report describing the nature of the polyps, I will be in touch with recommendations for your next colonoscopy. Incidentally, you also have some diverticulosis. Diverticula are little weak spots in the muscular wall of the colon. They typically accumulate as we get older. Will attach a little bit of information here regarding typical approaches for diverticular disease as well as colon and rectal polyps. If you have any questions in the meantime, please do not hesitate to ask. 1. If tolerated, consume a soft, low fiber diet for 1-2 days. 2[address] Do not drive, drink alcohol, operate machinery, make critical decisions, or do activities that require coordination or balance for 24 hours. 3. Because air was put into your colon during the procedure, expelling air from your rectum (passing gas or farting) is normal. 4. You may not have a bowel movement for 1-3 days because of the colonoscopy prep. This is normal. 5. Go directly to the emergency room if you notice any of the following: Develop chills (warm to touch), or if you have a thermometer and your temperature is above 101 Difficulty breathing or difficultly swallowing Persistent vomiting Severe abdominal pain, other than gas cramps Severe chest pain Black, tarry stools Any bleeding ? exceeding one tablespoon 6. Call your physician if the site where your intravenous was started becomes red, swollen, painful, and warm to touch. 7. Your physician has reviewed your pre-procedure medications. Please continue to take those medications as previously ordered. You will be given specific information/education regarding any changes to your medications before leaving. Activity:: Activity as Tolerated Diet:: As Tolerated Discharge Orders Discharge Orders: Discharge Order (Routine); Ordered 07/02/23 Ordered By: Evan Mariano DS: Diagnosis Discharge Diagnosis (1) Encounter for screening colonoscopy: Status: Acute Asessment and Plan: Follow-up on polypectomy results
--- NOTE | 2023-07-02 17:29 | COLE_ITS ---
Date of service: 07/03/23 Time of Service: 12:33 Colonoscopy Report Date of procedure: 07/03/23 Pre-op diagnosis general: screening colonoscopy Post-op diagnosis procedure note: other (Diverticulosis, polyps) Procedure: colonoscopy with polypectomy Surgeon: Evan Mariano Anesthesia Type: General:No Airway Estimated blood loss (mL): 5 Pathology: other (0.25 cm polyp at 20 cm, 0.5 cm rectal polyp) Complications: None Disposition: same day Indications: Kristen is a 53 year old woman who needs a screening colonoscopy Prep: Miralax/Dulcolax Findings: 0.25 cm polyp at 20 cm, 0.5 cm rectal polyp, sigmoid diverticulosis Procedure Description: After the induction of monitored anesthetic care, and with the patient in left lateral decubitus position, I began by performing an external anorectal exam.? Perineum and skin were normal, as was the anal verge.? There was no evidence of external hemorrhoids.? Next, I performed a digital rectal exam.? I did not appreciate any abnormal findings.? Next, I advanced a colonoscope into the rectal vault.? I performed retroflexion.? This appeared normal.? Using in sufflation, I then advanced the colonoscope beyond the rectal folds and into the sigmoid colon before advancing towards the cecum.? The quality of the prep was excellent.? The scope was noted to be in the cecum by identification of the ileocecal valve and appendiceal orifice.? I then began withdrawing the colonoscope using repeated irrigation as necessary for full evaluation of the colonic mucosa. ?Once the scope was withdrawn to the level of the rectum, great care was taken to examine portions of the rectal folds.? Around 20 cm from the anal verge was a 0.25 cm flat polyp. I removed this with cold forceps. Similarly, an upper portion of the rectum was a 0.5 cm pedunculated polyp. This was easily removed with cold forceps as well. There was minimal bleeding here finally, the scope was withdrawn and the patient was brought to the same-day surgery recovery unit as the anesthetic wore off. ?The findings and instructions were shared with the patient prior to discharge. Davison Bowel Prep Davison Bowel Prep Right Colon: 3 Left Colon: 3 Transverse Colon: 3 Total Score: 9
[2023-07-03 09:19] VITALS: BP 125/87; PULSE 72; RESP 18; TEMP 36; O2SAT 97
[2023-07-03] MEDS: Lactated Ringers 1,000 ML 80 ML IV (09:40)
--- NOTE | 2023-07-03 11:35 | W.ANESPRE ---
General Info Date of Service Date Performed: 07/03/23 Height: 5 ft 6 in Weight: 79.4 kg Body Mass Index (BMI): 28.2 Surgical Procedure: Operation Date: 07/03/23 10:35 Proposed Procedure Side Surgeon p Colonoscopy Evan Mariano MD Actual Procedure Side Surgeon p Colonoscopy Not Applicable Evan Mariano MD Pre-Op Diagnosis Post-Op Diagnosis screening colonocsopy screening colonocsopy Meds Allergies and Home Medications Allergies Allergy/AdvReac Type Severity Reaction Status Date / Time No Known Drug Allergies Allergy Verified 07/02/23 15:22 Home Medication Medication Instructions Recorded ibuprofen 200 mg tablet 2 - 4 tab PO BID PRN 08/23/13 cevimeline 30 mg capsule 30 mg PO TID PRN 06/25/16 hydroxychloroquine 200 mg tablet 200 mg PO DAILY 12/26/20 (Plaquenil) triamcinolone acetonide 0.1 % 1 applic topical BID PRN rash #80 08/26/22 topical cream grams ergocalciferol (vitamin D2) 1,250 50,000 unit PO .twice weekly #24 09/16/22 mcg (50,000 unit) capsule (Vitamin tab-caps D2) pregabalin 200 mg capsule 200 mg PO BID #180 caps 12/10/22 bupropion HCl 300 mg 24 hr tablet, 300 mg PO DAILY #90 tab-caps 12/23/22 extended release duloxetine 30 mg capsule,delayed 30 mg PO DAILY #270 tabs 04/18/23 release duloxetine 60 mg capsule,delayed 60 mg PO DAILY #270 tab-caps 04/18/23 release levothyroxine 50 mcg tablet 50 mcg PO DAILY #90 tabs 05/07/23 modafinil 200 mg tablet 200 mg PO DAILY #90 tabs 05/19/23 Current Visit Medications: Current Medications Generic Name Dose Route Start Last Admin Trade Name Freq PRN Reason Stop Dose Admin Hyoscyamine Sulfate 0.125 mg 07/02/23 17:30 Hyoscyamine 0.125 Mg Sl/Oral/Chew SL 08/01/23 17:29 DIRECTED PRN Ringer's Solution 1,000 mls @ 80 mls/hr 07/03/23 06:00 07/03/23 09:40 IV 08/01/23 23:59 80 mls/hr INFUSION GOLDIE Administration IV Miscellaneous Supplies 1 each 07/03/23 06:00 Iv Access IV 08/01/23 23:59 DIRECTED GOLDIE Ondansetron HCl 4 mg 07/02/23 17:30 Ondansetron 4 Mg/2 Ml Vial IVP 08/01/23 17:29 Q4H PRN PRN Nausea / Vomiting Sodium Chloride 0 ml 07/03/23 06:00 Normal Saline Flush 10 Ml Syr IV 08/01/23 23:59 PRN PRN Sodium Chloride 0 ml 07/03/23 06:00 Normal Saline 10 Ml Vial IJ 08/01/23 23:59 DIRECTED PRN Sterile Water 0 ml 07/03/23 06:00 Water,Injection,Sterile 10 Ml Vial IJ 08/01/23 23:59 DIRECTED PRN PFSH Active Problems Active Problems: Problem Status Onset Code Encounter for screening colonoscopy Z12.11 Lung nodule R91.1 Grief F43.21 Thyroid condition E07.9 Fatigue R53.83 Tremor R25.1 Multiple sclerosis 08/24/12 G35 Lupus erythematosus 08/24/12 L93.0 Depressive disorder F32.9 Complaints of memory disturbance 07/05/14 R41.3 Cognitive disorder 09/05/15 F09 Annual physical exam 05/13/17 Z00.00 Medical History Medical History Chest pain cardiac work up negative Murmur, cardiac Screening for colon cancer COVID-19 11/19/21 Vaccinated Boosted Abnormal thyroid function test Advance care planning Skin lesions Left carpal tunnel syndrome Antiphospholipid antibody positive Pt. states when she was initially dx with Lupus she was positive for this, but has since had a negative test, and is not taking any blood thinner prophylactically Cubital tunnel syndrome on right Obstructive sleep apnea Mild; . Insurance would not pay for CPAP or other device. Contraceptive surveillance 03/18/11 Rib pain on left side 06/25/16 Bronchitis Wrist pain, left (04/18/15) Vitamin D deficiency (12/24/11) Stenosing tenosynovitis (08/14/15) LEFT Shoulder pain, right (04/18/15) Low back pain (10/03/16) Limitation due to disability (12/06/14) Fever (04/07/17) Fatigue (12/24/11) ON METHYLPHENIDATE Cervical spondylosis (07/10/12) Noemí infection of mouth (03/20/14) Surgical History Surgical History Right carpal tunnel syndrome S/P ECTR: 07/11/2020 H/O surgical procedure Rhododendron teeth 06/02/87 H/O section 06/02/00 History of bilateral tubal ligation 06/02/12 Dr. Rahman Tobacco Smoking/Tobacco Use Status: Former Tobacco Use Passive smoking exposure: Yes Second hand exposure: Yes Alcohol Alcohol Intake: never Substance Use Substance use: Rarely Substance use type: marijuana Vital Signs and Lab Results Vital Signs Most Recent Vital Signs in EMR: Most Recent Vital Signs Temp Pulse Resp BP Pulse Ox 36 C L 72 18 125/87 97 07/03/23 09:19 07/03/23 09:19 07/03/23 09:19 07/03/23 09:19 07/03/23 09:19 Lab Results Blood Type / Crossmatch: No Data to Display Complete Blood Count: No Data to Display Complete Metabolic Panel: No Data to Display Liver Function Panel: No Data to Display Coagulation Panel: No Data to Display Cardiac Panel: No Data to Display Arterial Blood Gas: No Data to Display Venous Blood Gas: No Data to Display Pancreas Panel: No Data to Display Thyroid Panel: No Data to Display Infectious Disease: No Data to Display Blood Cultures: No Data to Display Toxicology Panel: No Data to Display Panel: No Data to Display Imaging and Studies Imaging and Studies Study information below may be from another EMR and interpreted by another provider. Please see original notes in EMR for more complete details. Stress Test Summary: MPI Conclusion Normal myocardial perfusion, no ischemia or prior infarction EF 56%, normal wall motion 06/24/22 Echocardiogram Summary: Conclusion Normal left ventricular wall thickness and chamber size. Estimated ejection fraction is 60%. Wall motion is normal Normal right ventricular size and systolic function Both atria are normal in size There is no structural or hemodynamically significant valvular disease Estimated right ventricular systolic pressure is normal at 20 mmHg 06/24/22 Anesthesia Assessment and Plan Anesthesia History Personal History: No History of Anesthesia Complications Family History: No Family History of Anesthesia Complications Exercise Tolerance Exercise Tolerance: Metabolic Equivalents>4 Pertinent Negatives Pertinent Negatives: No Symptoms of GERD, No Major Cardiovascular Symptoms or Complaints, No Major Pulmonary Symptoms or Complaints and No History of CVA/TIA Cardiac & Pulmonary Exam Cardiac Exam: Normal S1/S2 Heart Sounds and Heart Murmur Present ( very slight murmur) Pulmonary Exam: Clear Bilateral Breath Sounds Implantable Cardiac Device Does patient have a Pacemaker or an ICD?: No Airway Exam Known Difficult Airway: No Mallampati Class: 1 Mouth Opening: Normal (> 3cm) Thyromental Distance: Greater than 3 cm Neck Range of Motion: Full ROM Neck Circumference: Normal Teeth Condition: Normal Dentition ASA Classification ASA Score: ASA 2 Emergency Case?: No NPO Status NPO Status: NPO Clears >2 hours, Solids >8 hours Status Status: Not Relevant due to Medical History (post menopause) Anesthesia Plan Resuscitation Status: Full Code Anesthesia Technique: General Anesthesia Airway Planned: Natural Airway Monitors Used: Standard Monitors
[2023-07-03 11:49] VITALS: BMI 28.2
--- NOTE | 2023-07-03 12:05 | BOWEL_PTH ---
PATIENT: Kristen Tavares LOC: [facility] U#:[id number] AGE/SX: 53/F ROOM: RE07/03/[address]: Evan Mariano MD : 1970 BED: DIS: 07/03/2023 SPEC #: [id number] RECD: 07/03/23 13:18 STATUS: SIRENA RE #: [id number] ALMA DELIA: 07/03/23 12:[address]: Evan Mariano DEPT: Surgical Specimen RECD BY: Lelo Jeffrey ENTERED: 07/03/23 13:19 SP TYPE: Bowel OTHR DR: Terra Sanabria MD, DC Tissues: 1 - BIOPSY BOWEL 2 - BIOPSY BOWEL Procedures: GROSS AND MICRO LEVEL 4 Comments: [id number]
[2023-07-03 12:25] VITALS: BP 104/91; PULSE 71; RESP 16; TEMP 36.6; O2SAT 97
[2023-07-03 13:06] VITALS: BP 99/83; PULSE 66; RESP 16; O2SAT 98
--- NOTE | 2023-07-03 15:06 | W.ANESPOSTOP ---
Postoperative Evaluation Date, Time and Location Date Performed: 07/03/23 Time Performed: 12:30 Patient Location: Day Surgery Unit Vital Signs Most Recent Imported Vital Signs: Most Recent Vital Signs Temp Pulse Resp BP Pulse Ox 36.6 C 66 16 99/83 L 98 07/03/23 12:25 07/03/23 13:06 07/03/23 13:06 07/03/23 13:06 07/03/23 13:06 Pain Score Most Recent Pain Score: Most Recent Pain Score Pain Level 0 07/03/23 13:06 Assessment Mental Status: Awake (Alert & Oriented to Patient Baseline) Airway and Respiratory Function: Patent airway with normal (patient baseline) respiratory exam Cardiovascular Function: Hemodynamically Stable Hydration Status: Adequately Hydrated Nausea & Vomiting: No Nausea or Vomiting Pain: Pt. Denies Any Pain Peripheral Nerve Block: Patient did not receive a nerve block
== END 2023-07-03 13:27 | disposition home or self-care (01) ==
LOC: SUR 09:09
PROVIDERS: PCP Family Medicine; Visit Provider Surgery
PROC: 0DJD8ZZ Inspection of Lower Intestinal Tract, Via Natural or Artificial Opening Endoscopic (ICD-10-PCS; CPT 45378; principal; 2023-07-03 10:30)
DX: Z12.11 Encounter for screening for malignant neoplasm of colon (principal); K63.5 Polyp of colon; K57.30 Diverticulosis of large intestine without perforation or abscess without bleeding; D12.8 Benign neoplasm of rectum
CPT/HCPCS: 45380; 88305; J2704

== ENCOUNTER 2024-03-08 12:37 | Outpatient (REF) | payer OTHER, SELFPAY ==
--- NOTE | 2024-03-08 08:45 | PAPFT_PTH ---
PATIENT: Kristen Tavares LOC: [facility] U#:[id number] AGE/SX: 53/F ROOM: RE03/08/[address]: Terra Sanabria MD, DC : 1970 BED: DIS: 03/08/2024 SPEC #: [id number] RECD: 03/09/24 12:57 STATUS: SIRENA REQ #: [id number] ALMA DELIA: 03/08/24 08:[address]: Terra Sanabria DEPT: [facility] Cytology RECD BY: Lelo Jeffrey Tissues: 1 - CX/ENDOCX FOR PAP SMEARS Procedures: PAP THIN PREP/UVM Screening HPV DNA PROBE Comments: [id number] (HPV 16 & 18/45)
== END 2024-03-08 12:38 | disposition home or self-care (01) ==
LOC: LBN 12:37
PROVIDERS: PCP Family Medicine; Visit Provider Family Medicine
DX: Z12.4 Encounter for screening for malignant neoplasm of cervix (principal)
CPT/HCPCS: 88142; 87624

== ENCOUNTER 2024-03-17 02:32 | Outpatient (CLI) | payer OTHER, SELFPAY ==
--- NOTE | 2024-03-17 06:45 | DI.MAMMO_ITS ---
Exam(s) MAMMO SCREENING EXAM: MAMMO SCREENING CLINICAL HISTORY: screening,z12.39 TECHNIQUE: Bilateral full field digital CC and MLO mammographic images were obtained with 3D tomosyn thesis and utilizing computer aided detection (CAD). COMPARISON: Available for comparison. FINDINGS: Masses/Architectural Distortion: None seen. Microcalcifications: No suspicious pleomorphic-type are seen. Skin Thickening/Nipple Retraction: None. IMPRESSION: 1. No significant interval change with no specific features of malignancy noted. 2. Unless there is more urgent need, screening mammography is recommended, as per [employer] guidelines. BI-RADS Category 1 - Negative Breast Density - Category B - Scattered areas of fibroglandular density Breast density category C or D implies that the patient has dense breast tissue. Dense breast tissue is very common and is not abnormal but dense breast tissue can make it harder to find cancer on a ma mmogram. Also, dense breast tissue may increase their breast cancer risk. This information about the result of the mammogram report was provided to the patient to raise their awareness. Use this report when you speak with the patient about their risks for breast cancer, which includes their family hist ory. At that time, you may recommend for more screening tests (Ultrasound or MRI) as they might be us eful based on their risk. A negative radiographic report should not delay biopsy if a dominant or clinically suspicious mass is present. Up to ten percent of cancers are not identified on mammography. A negative report may reinforce clinical impression. Adenosis and dense breasts may obscure an underlying neoplasm. False positive reports average 6 to 10%. Patient will receive a letter notifying them of these results.
[2024-03-17 09:34] LABS: ALT 26 U/L (14-59); AST 19 U/L (15-37); Alkaline Phosphatase 90 U/L (46-116); Anion Gap 8.6 mmol/L (3-11); BUN 22 mg/dL (7-18); Bilirubin, Total 0.39 mg/dL (0.2-1.0); CO2 27.4 mmol/L (21.0-32.0); Calcium 9.4 mg/dL (8.5-10.1); Chloride 106 mmol/L (98-107); Estimated GFR 67.78 (mL/min/1.73m2); Glucose 107 mg/dL (74-106); Sodium 142 mmol/L (136-145); TSH (W/Ref FT4) 3.63 uIU/mL (0.36-3.74); Total Protein 7.6 g/dL (6.4-8.2)
[2024-03-17 10:15] LABS: Vitamin B12 239 pg/mL (193-986); Vitamin D 25 Total 71.6 ng/mL (30-100)
[2024-03-17 19:29] LABS: Hepatitis C Ab w Rflx HCV PCR Negative (Negative)
== END 2024-03-17 02:52 ==
LOC: DI 02:32
PROVIDERS: PCP Family Medicine; Visit Provider Family Medicine
DX: Z12.31 Encounter for screening mammogram for malignant neoplasm of breast (principal); I10 Essential (primary) hypertension; R79.89 Other specified abnormal findings of blood chemistry; E55.9 Vitamin D deficiency, unspecified; Z11.59 Encounter for screening for other viral diseases
CPT/HCPCS: 36415; 77063; 77067; 80053; 82306; 86803; 82607; 84443

== ENCOUNTER 2024-06-08 01:22 | Outpatient (CLI) | payer MEDICARE, SELFPAY ==
--- NOTE | 2024-06-08 10:10 | DI.CTLCSR_ITS ---
Exam(s) CT CHEST LUNG CANCER SCREEN EXAM: CT CHEST LUNG CANCER SCREEN CLINICAL HISTORY: Screening for lung cancer,former smoker, z87.891 TECHNIQUE: Imaging Protocol: Axial computed tomography images with coronal and sagittal reformatted images were created and reviewed. Lung Computer Aided Detection (CAD) was utilized. COMPARISON: CT CT CHEST LUNG CANCER SCREEN from 02/20/[address] CHEST WO from 05/23/2023 FINDINGS: Tracheobronchial tree: Patent where visualized. No bronchiectasis. Pulmonary parenchyma: No consolidation or dominant measurable mass. No architectural distortion. Lung Nodules: There is a stable 5 mm nodule in the periphery of the right lower lobe (series 2, image 84). There are no new pulmonary nodules. Mediastinum and Sofiya: No dominant adenopathy or fluid collection. The esophagus is unremarkable. Thyroid gland: Unremarkable. Lymph nodes: Unremarkable. Pleura: No effusion or pneumothorax. Heart: The heart is not dilated. Three vessel coronary artery calcification is present. No pericardi al effusion. Aorta: Thoracic aorta non-dilated. Upper abdomen: Unremarkable. Soft Tissues: Unremarkable. Bones: Within normal limits. IMPRESSION: Stable 5 mm right lower lobe pulmonary nodule. No new pulmonary nodules. Lung RADS Cat 2 - Benign Appearance / Behavior: Nodules with a very low likelihood of becoming a clin ically active cancer due to size or lack of growth Lung-RADS 1.0 CATEGORIES: Category 0 - Prior chest CT exam(s) being located for comparison. Category 1 - Annual screening in 12 months. No nodules or definitely benign nodules. Category 2 - Annual screening in 12 months. Benign appearance. Nodules with low likelihood of becomin g active cancer. Category 3 - 6-month follow-up. Probably benign. Short-term follow-up suggested. Nodules with low lik elihood of becoming active cancer. Category 4A - 3-month follow-up and CT/PET if >8 mm in size. Suspicious finding. Findings which requi re additional testing. Category 4B - Findings which require additional testing and tissue sampling. Suspicious finding. Category 4X - Category 3 or 4 nodules with additional features or imaging findings that increases the suspicion of malignancy. Modifier S- Potentially clinically significant finding. (Non lung cancer) RADIATION DOSE DELIVERED: 33.17mGy.cm Total DLP 33.17mGy.cmTotal DLP DATA REPOSITORY: All CT scans at this facility are submitted to the National Radiology Data Registry (NRDR) Dose Index Registry (DIR) with the [employer] ([employer]). RADIATION OPTIMIZATION: All CT scans at this facility use at least one of these dose optimization te chniques: automated exposure control; mA and/or kV adjustment per patient size (includes targeted exa ms where dose is matched to clinical indication); or iterative reconstruction.
== END 2024-06-08 01:42 ==
PROVIDERS: PCP Family Medicine; Visit Provider Family Medicine
DX: Z87.891 Personal history of nicotine dependence (principal); Z12.2 Encounter for screening for malignant neoplasm of respiratory organs; R91.1 Solitary pulmonary nodule
CPT/HCPCS: 71271

== ENCOUNTER 2024-08-03 06:12 | Day surgery (SDC) | payer MEDICARE, SELFPAY ==
[2024-08-03 06:28] VITALS: BP 112/82; PULSE 70; RESP 16; TEMP 36.5; O2SAT 98
[2024-08-03] MEDS: Cephalexin 500 MG CAP 1000 MG PO (06:49)
--- NOTE | 2024-08-03 07:10 | W.PM.DSUDISC ---
Date of service: 08/03/24 Discharge Plan Disposition Patient Disposition: Home Condition: Good Discharge Details Reason For Visit: Left carpal tunnel syndrome Attending Provider: Antonio Arriaga Primary Care Provider: Terra Sanabria Home Meds and New Rx's Prescriptions: New hydrocodone-acetaminophen 5-325 mg tablet 1 tab PO Q6H PRN (Reason: severe pain) Qty: 4 0RF Rx Instructions: Take one tablet up to every 6 hours as needed for severe postoperative pain Continued duloxetine 60 mg capsule,delayed release(DR/EC) 60 mg PO DAILY Qty: 270 3RF Rx Instructions: total daily dose 90mg duloxetine 30 mg capsule,delayed release(DR/EC) 30 mg PO DAILY Qty: 270 3RF Rx Instructions: total daily dose 90mg levothyroxine 50 mcg tablet 50 mcg PO DAILY Qty: 90 6RF pregabalin 200 mg capsule 200 mg PO BID Qty: 180 3RF ibuprofen 200 MG tablet 2 - 4 tab PO BID PRN cevimeline 30 MG capsule 30 mg PO TID PRN Patient Comments: 10/03/16- Takes PRN. aj hydroxychloroquine [Plaquenil] 200 mg tablet 200 mg PO DAILY Patient Comments: Friday,Friday just takes one tab per rheumatology. 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
[2024-08-03] MEDS: Sodium Bicarbonate 50 MEQ/50 ML VIAL (07:34)
[2024-08-03] MEDS: Lidocaine 1% Pres-Free W/EPI 1/200,000 10 ML VIAL (07:34)
--- NOTE | 2024-08-03 07:47 | ROE_ITS ---
Operative Note Operative Note PRE-OP DIAGNOSIS: Left Carpal Tunnel Syndrome POST-OP DIAGNOSIS: same PROCEDURE: Left Endoscopic Carpal Tunnel Release SURGEON: Antonio Arriaga ANESTHESIA TYPE: Local By Surgeon Refer to Anesthesia Record ESTIMATED BLOOD LOSS: 0 PATHOLOGY: none sent TOURNIQUET TIME: 6 COMPLICATIONS: None Patient was transported to: same day Patient's condition: stable Indications: I have seen Kristen in clinic for symptoms of carpal tunnel syndrome. The numbness, tingling, and pain limited function. Clinical exam findings confirmed the diagnosis of carpal tunnel syndrome. Nonoperative measures such as bracing, time, activity modifications had been tried but disability and pain persisted. I discussed carpal tunnel release with the patient. I reviewed the risks of the procedure to include, but not limited to, bleeding, infection, pain, stiffness, incomplete release, damage to nerves or vessels, persistent numbness, recurrence. Despite these risks, the patient elected to proceed. Findings: There was tightened carpal tunnel. This was dilated and released successfully with the endoscopic with increased space within the tunnel. The antebrachial fascia was released proximally freeing the median nerve at the wrist. Procedure Description: Kristen was greeted in the preoperative holding area where the correct side was identified and marked. The consent was reviewed with the patient and signed. The history and physical was updated. All questions were answered. Pro phylactic antibiotics in the form of Cephalexin were administered. She was taken back to the operating room. The patient was placed into the supine position on the operating room table with the left arm on an arm board. A nonsterile tourniquet was placed high onto the arm. All bony prominences were well padded. The left arm was then prepped with Chloraprep and draped in a standard fashion with stockinette and extremity drape. A timeout to confirm correct identity, side and site, procedure, allergies, anesthesia, and medical concerns was performed. The surgical site was marked in the volar wrist creases in line with the radial border of the fourth ray. This area was anesthetized with approximately 6cc of 1% Lidocaine. The limb was then exsanguinated with an Esmarch. The skin was incised with a 15 blade, approximately 1cm. The skin only was cut and the deeper tissue was dissected bluntly with a tenotomy scissor, avoiding passing nerve and venous structures. The fascia was penetrated and opened bluntly. A two-prong skin hook was placed under this proximal fascial edge. A series of hamate finders were used to identify and dilate the carpal tunnel. Synovial elevator was used to free synovial attachments to the underside of the transverse carpal ligament. My thumb was kept in the palm to hong the distal extent of the carpal tunnel and correctly position the hand. The [employer] endoscope was inserted without difficulty and without resistance. Excellent visualization showed horizontally running fibers of the transverse carpal ligament (TCL). The distal extent of the TCL was visualized and the end of the scope palpated with the thumb. The blade was elevated and withdrawn from distal to proximal. The TCL was split into two flaps. The endoscope was reinserted to confirm complete release and any remnant ligament was incised. The scope was withdrawn and the proximal aspect of the carpal tunnel was grossly inspected and appeared release with the median nerve visible. The antebrachial fascia at the level of the wrist was then freed from the overlying skin and then the underlying median nerve with blunt dissection. This was transected longitudinally for about 3cm proximal to the wrist incision. The wound was then irrigated with easy flow of irrigant distally and proximally. The incision was closed with a single 4-0 Nylon suture. The wound was dressed with Xeroform, Gauze, Kerlix and Roldan. The tourniquet was deflated with the initial dressing and held with some pressure. Blood flow returned easily to all digits with capillary refill less than 2 seconds. The patient tolerated the procedure well and was returned to the Same Day Surgery area in a stable condition suffering no known complication. Date of Procedure: 08/03/24
[2024-08-03 07:50] VITALS: BP 128/82; PULSE 70; RESP 16; TEMP 36; O2SAT 98
== END 2024-08-03 07:54 | disposition home or self-care (01) ==
PROVIDERS: PCP Family Medicine; Visit Provider Student in an Organized Health Care Education/Training Program
PROC: 01N54ZZ Release Median Nerve, Percutaneous Endoscopic Approach (ICD-10-PCS; CPT 29848; principal; 2024-08-03 07:30)
DX: G56.02 Carpal tunnel syndrome, left upper limb (principal); G35 Multiple sclerosis; E55.9 Vitamin D deficiency, unspecified; G47.33 Obstructive sleep apnea (adult) (pediatric); L93.0 Discoid lupus erythematosus
CPT/HCPCS: 29848; J2004

== ENCOUNTER → 2024-08-13 08:10 | Outpatient (BNVA) | payer MEDICARE, SELFPAY | PROVIDERS: PCP Family Medicine; Referring Provider Family Medicine | DX: Z47.89 Encounter for other orthopedic aftercare (principal); M79.642 Pain in left hand | CPT/HCPCS: 99024 ==

== ENCOUNTER → 2024-08-23 15:12 | Outpatient (BNVA) | payer MEDICARE, SELFPAY | PROVIDERS: PCP Family Medicine; Visit Provider Psychiatry & Neurology Neurology | DX: G35 Multiple sclerosis (principal); R53.82 Chronic fatigue, unspecified; F32.9 Major depressive disorder, single episode, unspecified; R25.1 Tremor, unspecified; R41.3 Other amnesia; G56.02 Carpal tunnel syndrome, left upper limb | CPT/HCPCS: 99214 ==

== ENCOUNTER 2024-11-08 01:46 | Outpatient (CLI) | payer MEDICARE, SELFPAY ==
--- NOTE | 2024-11-08 08:25 | DI.US_ITS ---
Exam(s) US SOFT TISSUE EXTREMITY EXAM: US SOFT TISSUE EXTREMITY CLINICAL HISTORY: right wrist cyst please evaluate and ID, OTHER BURSAL CYST, R WRIST [id number]. TECHNIQUE: Ultrasound was performed using standard protocol. COMPARISON: None. FINDINGS: Dedicated ultrasound examination of the area of clinical concern on the lateral aspect of the right w rist was performed. Submitted images reveal thickened tendon with some surrounding fluid consistent with tendinitis and m ild tenosynovitis. This appears to be in the region of the 1st extensor compartment. IMPRESSION: Thickened tendon and mild surrounding fluid consistent with tendinitis and tenosynovitis. If clinica lly indicated further study with MRI can be performed for added sensitivity/specificity/to determine if this is de Quervain's tenosynovitis (abductor pollicis longus/extensor pollicis brevis) or related to the adjacent 2nd compartment extensor carpi radialis longus/brevis tendons. DATA REPOSITORY:
== END 2024-11-08 02:06 ==
LOC: DI 01:46
PROVIDERS: PCP Family Medicine; Visit Provider Physician Assistant
DX: M71.331 Other bursal cyst, right wrist (principal)
CPT/HCPCS: 76881

== ENCOUNTER → 2024-12-16 07:56 | Outpatient (BNVA) | payer MEDICARE, SELFPAY | PROVIDERS: PCP Family Medicine; Referring Provider Physician Assistant; Visit Provider Physician Assistant | DX: M65.4 Radial styloid tenosynovitis [de Quervain] (principal) | CPT/HCPCS: 99213 ==

== ENCOUNTER → 2024-12-28 13:10 | Outpatient (BNVA) | payer MEDICARE, SELFPAY | PROVIDERS: PCP Family Medicine; Visit Provider Psychiatry & Neurology Neurology | DX: G35 Multiple sclerosis (principal); R53.82 Chronic fatigue, unspecified; F32.9 Major depressive disorder, single episode, unspecified; R25.1 Tremor, unspecified; R41.3 Other amnesia; G56.02 Carpal tunnel syndrome, left upper limb | CPT/HCPCS: 99214 ==

== ENCOUNTER → 2025-01-27 08:28 | Outpatient (BNVA) | payer MEDICARE, SELFPAY | PROVIDERS: PCP Family Medicine; Referring Provider Physician Assistant; Visit Provider Student in an Organized Health Care Education/Training Program | DX: M65.4 Radial styloid tenosynovitis [de Quervain] (principal); M77.11 Lateral epicondylitis, right elbow | CPT/HCPCS: 99213 ==

== ENCOUNTER 2025-03-18 04:11 | Outpatient (CLI) | payer MEDICARE, SELFPAY ==
[2025-03-18 09:37] LABS: HCT 40.6 % (36.0-46.0); HGB 13.9 g/dL (11.2-15.7); MCH 30.5 pg (27.0-33.0); MCHC 34.2 % (32.0-36.0); MCV 89 fL (80-95); MPV 9.6 fL (8.0-11.0); Platelet Count 375 10^3/uL (130-400); RBC 4.56 10^6/uL (3.93-5.22); RDW 13.2 % (11.7-14.6); RDW-SD 43.0 fL; WBC 7.10 10^3/uL (4.4-10.8)
[2025-03-18 10:44] LABS: ALT 25 U/L (14-59); AST 12 U/L (15-37); Albumin 3.7 g/dL (3.4-5.0); Alkaline Phosphatase 95 U/L (46-116); Anion Gap 6.6 mmol/L (3-11); BUN 22 mg/dL (7-18); Bilirubin, Total 0.2 mg/dL (0.2-1.0); CO2 28.4 mmol/L (21.0-32.0); Calcium 8.5 mg/dL (8.5-10.1); Chloride 104 mmol/L (98-107); Estimated GFR 76.44 (mL/min/1.73m2); Ferritin 44 ng/mL (8-252); Glucose 100 mg/dL (74-106); Potassium 4.5 mmol/L (3.5-5.1); Sodium 139 mmol/L (136-145); TSH (W/Ref FT4) 2.42 uIU/mL (0.36-3.74); Total Protein 6.8 g/dL (6.4-8.2); Vitamin B12 211 pg/mL (193-986); Vitamin D 25 Total 72 ng/mL (30-100)
== END 2025-03-18 04:12 | disposition home or self-care (01) ==
LOC: LBO 04:12
PROVIDERS: PCP Family Medicine; Visit Provider Family Medicine
DX: E53.8 Deficiency of other specified B group vitamins (principal); I10 Essential (primary) hypertension; E55.9 Vitamin D deficiency, unspecified; E03.9 Hypothyroidism, unspecified; E61.1 Iron deficiency
CPT/HCPCS: 36415; 80053; 82306; 85027; 82607; 82728; 84443

== ENCOUNTER → 2025-04-04 08:54 | Outpatient (BNVA) | payer MEDICARE, SELFPAY | PROVIDERS: PCP Family Medicine; Referring Provider Family Medicine; Visit Provider Psychiatry & Neurology Neurology | DX: G35.D Multiple sclerosis, unspecified (principal); R53.82 Chronic fatigue, unspecified; F32.9 Major depressive disorder, single episode, unspecified; R25.1 Tremor, unspecified; R41.3 Other amnesia; G56.02 Carpal tunnel syndrome, left upper limb | CPT/HCPCS: 99215 ==